=== PATIENT | female | born 1975 | race Caucasian/White ===

== ENCOUNTER 2017-02-10 10:25 | Observation (INO) | payer OTHER ==
[2017-02-05 09:50] LABS: BASOPHILS 0.4 %; BASOPHILS ABSOLUTE 0.02 10/3/uL (0.0-0.16); EOSINOPHILS 3.8 %; EOSINOPHILS ABSOLUTE 0.17 10/3/uL (0.0-0.53); HEMOGLOBIN 12.6 g/dL (12.0-16.0); LYMPHOCYTES 18.8 %; LYMPHOCYTES ABSOLUTE 0.84 10/3/uL (0.67-4.30); MEAN CORPUSCULAR HEMOGLOB 30.7 pg (26.0-34.0); MEAN CORPUSCULAR VOLUME 87.8 fL (80-100); MEAN PLATELET VOLUME 10.3 fL (9.2-13.0); MONOCYTES 9.4 %; MONOCYTES ABSOLUTE 0.42 10/3/uL (0.21-1.20); NEUTROPHILS 67.6 %; NEUTROPHILS ABSOLUTE 3.02 10/3/uL (2.02-8.40); PLATELET COUNT 234 10/3/uL (150-400); RBC DISTRIBUTION WIDTH 11.7 % (12.0-16.0); WHITE BLOOD CELLS 4.5 10/3/uL (4.5-10.5)
[2017-02-05 09:56] LABS: MANUAL DIFF NO %
[2017-02-05 10:08] LABS: A/G RATIO 1.5 (0.7-1.9); ALBUMIN 4.4 G/DL (3.5-5.0); ALKALINE PHOSPHATASE 75 U/L (45-117); BUN (BLOOD UREA NITROGEN) 13 MG/DL (6-23); CALCIUM, SERUM 9.5 MG/DL (8.5-10.4); CHLORIDE, SERUM 108 MMOL/L (96-112); CO2 (CARBON DIOXIDE) 27 MMOL/L (24-34); CREATININE 0.82 MG/DL (0.55-1.02); GFR AFRICAN AMERICAN 102 ML/MIN (>=60); GFR NON AFRICAN AMERICAN 88 ML/MIN (>=60); GLUCOSE, SERUM 86 MG/DL (60-99); POTASSIUM, SERUM 4.1 MMOL/L (3.5-5.3); SGOT(AST) 27 U/L (5-40); SGPT(ALT) 51 U/L (5-65); SODIUM, SERUM 142 MMOL/L (135-148); TOTAL BILIRUBIN 0.4 MG/DL (0-1.2); TOTAL PROTEIN 7.4 G/DL (6.0-8.5)
--- NOTE | ~2017-02-10 | OP ---
Record Of Operation [facility] [address] [place]. [address] NAME: MIKAELA PRICE : 73 STATUS : ADM Paul PAT#: [id number] AGE: 41 ADM/REG DATE : 02/10/17 MR#: [id number] REPORT SERV DATE: 02/11/17 DICTATED BY: MARC HARGROVE DATE: 02/10/17 REPORT STATUS : Draft TRANSCRIBED BY: ZACHARY DATE: 02/10/17 DATE OF PROCEDURE: 02/10/2017 PREOPERATIVE DIAGNOSIS: Locally advanced left breast invasive ductal cancer, status post neoadjuvant chemotherapy. POSTOPERATIVE DIAGNOSIS: Locally advanced left breast invasive ductal cancer, status post neoadjuvant chemotherapy. PROCEDURE: 1. Bilateral nipple-sparing mastectomy through an inframammary crease incision. 2. Left axillary sentinel lymph node biopsy and also right chest wall venous port removal. INDICATION FOR THE PROCEDURE: Ms Price is a healthy 41-year-old female, who was diagnosed with a locally advanced left breast aggressive invasive ductal cancer months ago. She underwent neoadjuvant chemotherapy with a very good clinical response. A once 5 to 6 cm tumor was shrunk down to a scar measuring approximately a centimeter in size. Her obvious lymphadenopathy resolved completely on ultrasound. The patient is strongly motivated for bilateral mastectomy and understands the right side would be prophylactic in nature. She has met with both myself as well as Dr. Crawford of Plastic Surgery and both feel she is a great candidate for an inframammary crease access site. A sentinel lymph node biopsy will be performed by new guidelines and if negative axillary dissection can be avoided. The patient presented for lymphoscintigraphy scan earlier this morning showing good uptake in a single lymph node in the left axilla. Medical Oncology has cleared the port to be removed today. OPERATIVE FINDINGS: After appropriate consent was noted on the chart, the patient was taken to the operating room in supine position. She was placed under general anesthesia without any complication. Gamma probe was placed in the left axilla and good uptake noted. Methylene blue was not utilized. The patient's bilateral chest wall and axilla were prepped and draped in the sterile fashion. The left breast mastectomy was performed first. An inframammary incision had been marked on the skin by Dr. Crawford. The remainder of the breast parenchyma was marked out on the skin prior to my incision. An incision was made with a #15 blade in the prior marked inframammary crease incision. Sharp dissection was carried down with plasma blade to the level of the pectoralis major fascia. Flaps were created on the posterior margin first. Dissection was carried up over the pectoralis major muscle removing the fascia from the muscle all the way to the extent of the breast parenchyma in all directions. The anterior dissection was then performed. Dissection was carried out with plasma blade to the extent of the breast parenchyma anteriorly with careful note to avoid burning the skin as well as to ensure that the majority of the tissue behind the nipple was taken. The breast was divided from the axillary fat pad at the axillary tail, marked with sutures above the axillary tail and the tissue posterior to the nipple. The wound was copiously irrigated with warm saline and hemostasis achieved. The gamma probe was placed into the left axilla and good uptake noted. Lymph node was excised with an ex- vivo count of approximately 4500, background count at that point was 16. This lymph node felt like a scarred lymph node that had responded to chemotherapy. It was sent for Record Of Operation [address] [place]. [address] NAME: MIKAELA PRICE : 73 STATUS : ADM Paul PAT#: [id number] AGE: 41 ADM/REG DATE : 02/10/17 MR#: [id number] REPORT SERV DATE: 02/11/17 DICTATED BY: MARC HARGROVE DATE: 02/10/17 REPORT STATUS : Draft TRANSCRIBED BY: MODL DATE: 02/10/17 immediate evaluation by pathology who noted calcifications and hemosiderin deposits, but no obvious malignancy. No additional lymph nodes were taken. The wound was again irrigated. Hemostasis achieved and a wet lap sponge placed. The right mastectomy was performed in similar fashion. Incision was made in the inframammary crease and sharp dissection carried down the posterior margin along the pectoralis major fascia. The fascia was taken off the muscle to the extent of the parenchyma in all directions. The anterior dissection was performed next using plasma blade. Careful note was taken to not to take the deep dermal tissues, but to take all of the tissue behind the nipple. The breast was divided from the axillary fat pad at the axillary tail and marked with a single stitch in the axillary tail and sent for permanent pathology. The wound was copiously irrigated with warm saline and hemostasis achieved. A wet lap sponge was placed. Through the breast incision, the port was palpated at the posterior margin. A small incision was made in the muscle fascia superiorly and the port was delivered through this hole. The sutures were clipped. The port removed without issue. The port catheter appeared to be intact. There was no sign of shearing, tearing, or infection. This port cavity was closed from the inside with a 3-0 Vicryl stitch. Pressure was held in the neck for 5 minutes. No hematoma or bleeding was noted. At the end of my portion of the case all counts were correct. ESTIMATED BLOOD LOSS: 150 mL. COMPLICATIONS: None. SPECIMEN: Bilateral breast and left axillary sentinel node x1 and port which was thrown in the trash. TEA/ZACHARY Marc Hargrove MD / [id number] CC: MD Ravindra Burch III, M.D. [facility] [place] Pablo Nevarez M.D. Kevin Crawford M.D. MD LAMONT [facility] MURRAH WATSON, MD
--- NOTE | ~2017-02-10 | OP ---
Record Of Operation [facility] [address] [place]. [address] NAME: MIKAELA BURNETTE : 73 STATUS : ADM Paul PAT#: [id number] AGE: 41 ADM/REG DATE : 02/10/17 MR#: [id number] REPORT SERV DATE: 02/11/17 DICTATED BY: JUDY CRAWFORD DATE: 02/11/17 REPORT STATUS : Draft TRANSCRIBED BY: MODL DATE: 02/11/17 DATE OF PROCEDURE: 02/10/2017 PREOPERATIVE DIAGNOSIS: Surgical absence of the breast, history of breast cancer. POSTOPERATIVE DIAGNOSIS: Surgical absence of the breast, history of breast cancer. PROCEDURE: Bilateral tissue 2 year olds preschool teacher acellular dermal matrix reconstruction of nipple- areolar complex sparing mastectomies. INDICATIONS AND FINDINGS OF THE PROCEDURE: This 41-year-old female, presents anticipating bilateral mastectomies in management of her breast cancer. She is appropriate for the above described operative intervention. DETAILS OF THE PROCEDURE: The patient presents on the operating table after bilateral inframammary crease based nipple-areolar complex sparing mastectomies. Our attention was turned to the right. The pectoralis muscle was released inferiorly and she was then blocked with ropivacaine, and an appropriately reconstituted sheet of acellular dermal matrix was then sewn to the cut edge of the pectoralis muscle. This was then in turn sewn to the inframammary crease, its purpose was to supplement the soft tissue envelope, recreate the inframammary crease, and stabilize the position of the tissue 2 year olds preschool teacher. The tissue 2 year olds preschool teacher of 500 mL was prepped and placed behind the muscle AlloDerm construct. It was then filled to 400, after being stabilized and secured to the chest wall. She was checked for hemostasis, irrigated with Hibiclens solution, inferior drains were placed, and then she was closed in a progressive tension fashion with multiple layers of 3-0 PDS and Monocryl through to an intracuticular in the skin. Our attention was then turned contralaterally for an identical procedure. The pectoralis muscle was released, an identical sheet of acellular dermal matrix was then inset for an identical reason. An identical tissue 2 year olds preschool teacher was used for an identical reason. The ropivacaine block was obtained. The tissue 2 year olds preschool teacher was seated appropriately and filled to 400. She was thoroughly irrigated with Hibiclens solution, checked for hemostasis. Inferior drains were placed, and she was then closed in a progressive tension fashion with multiple layers of PDS and Monocryl through to an intracuticular in the skin. She was cleansed with peroxide. Nitroglycerin paste and dry dressings were placed and she was remanded to the recovery room in stable condition. All sponge and needle counts were correct. SANDY/ZACHARY Judy Crawford M.D. / [id number] CC: Record Of [address] [address] NAME: MIKAELA BURNETTE : 73 STATUS : ADM Paul PAT#: [id number] AGE: 41 ADM/REG DATE : 02/10/17 MR#: [id number] REPORT SERV DATE: 02/11/17 DICTATED BY: JUDY CRAWFORD DATE: 02/11/17 REPORT STATUS : Draft TRANSCRIBED BY: ZACHARY DATE: 02/11/17 Ernestina Mcelroy MD
[~2017-02-10 10:25] MED LIST: ACET500CAP PO; ADVIL PO
[2017-02-10 13:35] LABS: PARTIAL THROMBO TIME 23.1 SEC (22.5-37.2); PROTIME (NOT ORD) 13.1 SEC (12.0-14.5)
[2017-02-11] MEDS ORDERED: PERCOCET 7.5/321 TAB PO (10:01)
[2017-02-11] MEDS ORDERED: AT25 PO (10:02)
[2017-02-11] MEDS ORDERED: K500 PO (10:02)
== END 2017-02-11 12:00 | disposition home or self-care (01) ==
LOC: SDC 10:25 → SDC/OF 17:33 → 4EA 18:58
PROVIDERS: Surgery Surgery of the Hand; Surgery Surgical Oncology
PROC: 0HHV0NZ Insertion of Tissue Expander into Bilateral Breast, Open Approach (ICD-10-PCS; principal; 2017-02-10 13:45)
PROC: 0HTV0ZZ Resection of Bilateral Breast, Open Approach (ICD-10-PCS; 2017-02-10 13:45)
PROC: 07B60ZX Excision of Left Axillary Lymphatic, Open Approach, Diagnostic (ICD-10-PCS; 2017-02-10 13:45)
DX: C50.912 Malignant neoplasm of unspecified site of left female breast (principal)
CPT/HCPCS: 71020; 78195; 80053; 84703; 85025; 85576; 85610; 85730; 88307; 88331; 88332; 88342; 96374; 96375; 96376; A9270-GY; A9541; C1769; C1789; G0378; J0690; J1885; J2250; J2270; J2405; J2550; J2710; J2795; J3010; Q4116